=== PATIENT | female | born 2000 | race Caucasian/White ===

== ENCOUNTER 2023-02-20 10:07 | Emergency (ER) | payer SELFPAY ==
[2023-02-20 10:17] VITALS: BP 142/87; PULSE 83; RESP 14; TEMP 36.5; O2SAT 97
--- NOTE | 2023-02-20 10:37 | CRLHL7_ITS ---
For Patients: As a result of the Century Cures Act, medical imaging exams and procedure reports are released immediately into your electronic medical record. You may view this report before your referring provider. If you have questions, please contact your health care provider. INDICATION: RIGHT SIDED POSTERIOR CHEST PAIN TECHNIQUE: Chest 2 views. COMPARISON: None. FINDINGS: Cardiovascular and mediastinum: Heart size and vasculature are normal in caliber and appearance. Incidental right azygos fissure. Lungs and pleural spaces: Lungs are clear. No sign of infiltrate. No sign of pleural effusion. No pneumothorax. Bones and soft tissues: No significant findings. IMPRESSION: No evidence of acute cardiopulmonary process. Dictated by Sven Overton MD @ 02/20/2023 11:10:56 AM (Electronically Signed)
--- NOTE | 2023-02-20 12:12 | ED_ITS ---
HPI - Back Pain/Injury General Date Seen: 02/20/23 Chief Complaint: Back Injury/Pain Stated Complaint: Back pain Time Seen by Provider: 02/20/23 10:11 Source: patient Mode of arrival: ambulatory Limitations: no limitations History of Present Illness HPI Narrative: Patient is a nice 22-year-old female presents here with right posterior thoracic discomfort, she has had for the last 3-4 days, she says this worsens with work, she has been using some heat over the area, and whenever she twists or turns it is worsening, taking a breath in does not seem to be that bad, she has no cough, the pain does not cause any shortness of breath, she has been no nausea vomiting fevers chills denies any numbness tingling or weakness, the pain is not low, does not radiate to her legs but seemingly goes down her whole spine. She has tried Tylenol ibuprofen has been taking these every 3 hours, and this is really help. She is using chiropractic manipulation or PT. MD elicited complaint: back pain Work related injury: Yes Related Data Previous Rx's Medication Instructions Recorded cyclobenzaprine 10 mg tablet 10 mg PO TID #15 tabs 02/20/23 Allergies Allergy/AdvReac Type Severity Reaction Status Date / Time Penicillins Allergy Verified 02/20/23 10:15 hydrocodone AdvReac Verified 02/20/23 10:15 Review of Systems Status of ROS: Reports: 10 or more systems reviewed and unremarkable except as noted in History and below PFSH PFSH Social History Smoking Status: Never smoker Do you use any of these nicotine containing products: None Second hand tobacco smoke exposure: No How often do you have a drink containing alcohol: 2-4 times a month How often do you have six or more drinks on one occasion: Less than monthly AUDIT-C Alcohol total score: 3 Non-prescribed substance use: marijuana (any form) service: No Exam Narrative: Exam Narrative: On examination she is seen in room 5 she is in no apparent distress, but did become teary is as examining her pupils equal round reactive to light her neck is excellent flexion extension, lateral flexion rotation are all normal this is not reproduce any radicular symptoms into her arms, her Thoracics and lumbar spine are nontender to palpation, twisting causes some discomfort more the right than the left, she is able to take a big breath in, and I did could not hear any wheezes crackles, there are no signs respiratory distress or heart sounds are normal, her abdomen is otherwise soft, there is no tenderness to palpation bowel sounds are normal, no organomegaly, she is able to walk, able to bend over and touch her knees fully extend, and walk around the room. Const: Vital Signs, click to edit/add: Vital Signs - 24 hr 02/20/23 10:17 Temperature 97.7 F Pulse Rate [Right Pulse Oximeter] 83 Respiratory Rate 14 Blood Pressure [Ri ght Upper Arm] 142/87 H Pulse Oximetry 97 Oxygen Delivery Me thod Room Air Course Course Hospital Course: She is half mildly tender approximately T 67, laterally, the paraspinal muscles, I suspect that this is muscular, not getting a feeling this is a abscess, radiculopathy, acute impingement, pulmonary embolism, or anything significant, I have asked her to use ice as opposed to heat, and use Flexeril, and she was comfortable this over off work for 2 days. Vital Signs Vital signs: Initial Vital Signs Temperature 97.7 F 02/20/23 10:17 Temperature Source Temporal Artery Scan 02/20/23 10:17 Pulse Rate 83 02/20/23 10:17 Respiratory Rate 14 02/20/23 10:17 Blood Pressure 142/87 H 02/20/23 10:17 Blood Pressure Mean 105 02/20/23 10:17 Blood Pressure Position Sitting 02/20/23 10:17 Pulse Oximetry 97 02/20/23 10:17 Oxygen Delivery Method Room Air 02/20/23 10:17 Vital Signs Temperature 97.7 F 02/20/23 10:17 Pulse Rate 83 02/20/23 10:17 Respiratory Rate 14 02/20/23 10:17 Blood Pressure 142/87 H 02/20/23 10:17 Pulse Oximetry 97 02/20/23 10:17 Oxygen Delivery Method Room Air 02/20/23 10:17 Temperature 97.7 F 02/20/23 10:17 Pulse Rate 83 02/20/23 10:17 Respiratory Rate 14 02/20/23 10:17 Blood Pressure 142/87 H 02/20/23 10:17 Pulse Oximetry 97 02/20/23 10:17 Oxygen Delivery Method Room Air 02/20/23 10:17 MDM - Back Pain/Injury MDM Narrative Medical decision making narrative: Life-threatening differential diagnosis considered include: Cauda equina an epidural abscess, other differential diagnosis considered includes sprain, contusion, nerve root entrapment, radiculopathy, muscle spasm, urolithiasis, lumbar fracture, pyelonephritis, appendicitis, biliary colic, as well as other etiologies. The patient denies saddle anesthesia bowel or bladder incontinence or lower extremity weakness, recent weight loss, or history of malignancy. Medical Records Attestation: I reviewed the patient's medical records. Imaging Data Chest x-ray: My impression: Negative chest x-ray Radiologist's impression: Patient: WANDA SIMMONS Facility:?[facility] Patient ID:?[id number] Site Patient ID:?[id number]. Site :?[id number] Study:?XRay Chest 2 VIEWS-02/20/2023 10:50:51 AM Ordering Physician:Varsha Fonseca Final Report: INDICATION: RIGHT SIDED POSTERIOR CHEST PAIN TECHNIQUE: Chest 2 views. COMPARISON: None. FINDINGS: Cardiovascular and mediastinum: Heart size and vasculature are normal in caliber and appearance. Incidental right azygos fissure. Lungs and pleural spaces: Lungs are clear. No sign of infiltrate. No sign of pleural effusion. No pneumothorax. Bones and soft tissues: No significant findings. IMPRESSION: No evidence of acute cardiopulmonary process. Dictated by Sven Overton MD @ 02/20/2023 11:10:56 AM (Electronic Signature) Discharge Plan Discharge Clinical Impression: Acute thoracic myofascial strain Patient Disposition: Home, Self-Care Condition: Stable Instructions: Muscle Strain (DC), Cold Compress or Soak (ED) Additional Instructions: Home, rest, ice, ibuprofen 800 mg p.o. t.i.d. you can supplement this with Tylenol 1 g p.o. t.i.d., muscle relaxants, consider chiropractic manipulation, off work for 2 days. Follow-up with primary care for further help, and further time off work. X-ray entirely negative for any bony abnormality long abnormality. Activity Detail: Off work for 48 hours Prescriptions: New cyclobenzaprine 10 mg tablet 10 mg PO TID Qty: 15 0RF Follow Up/Referrals: Jeoy Cho MD [Primary Care Provider] - Stand Alone Forms: [employer] Info Instructions
== END 2023-02-20 12:02 | disposition home or self-care (01) ==
PROVIDERS: Emergency Provider Family Medicine; PCP Family Medicine
DX: S29.012A Strain of muscle and tendon of back wall of thorax, initial encounter (principal)
CPT/HCPCS: 71046; 99283; 99284